=== PATIENT | female | born 1980 | race Caucasian/White ===

== ENCOUNTER 2016-06-11 08:22 | Emergency (ER) | payer OTHER ==
--- NOTE | 2016-06-11 08:59 | UC ---
Lower Extremity/Ankle HPI - HPI Summary HPI Summary: Patient roller her ankle yesterday she was able to "hobble around" when she woke up this morning the ankle was swollen and she cant bear weight without pain. - History of Current Complaint Chief Complaint: UCLowerExtremity Stated Complaint: RIGHT ANKLE INJURY Time Seen by Provider: 06/11/16 08:46 Hx Obtained From: Patient Hx Last Menstrual Period: unknown ?: No Onset/Duration: Sudden Onset, Lasting Hours Severity Initially: Moderate Severity Currently: Severe Aggravating Factor(s): Standing, Ambulation Alleviating Factor(s): Rest Able to Bear Weight: Yes - but painful - Risk Factors Gout Risk Factors: Negative DVT Risk Factors: Negative - Allergies/Home Medications Allergies/Adverse Reactions: Allergies Allergy/AdvReac Type Severity Reaction Status Date / Time Sulfa Drugs Allergy Intermediate Hives Verified 06/11/16 08:35 Bees Allergy Intermediate Hives Uncoded 06/11/16 08:35 PMH/Surg Hx/FS Hx/Imm Hx Previously Healthy: Yes Endocrine History Of: Denies: Diabetes, Thyroid Disease Cardiovascular History Of: Reports: Cardiac Disorders - L ventricular hypertrophy, Hypertension Respiratory History Of: Reports: Asthma - ROUTINE INHALER Denies: COPD GI/ History Of: Reports: Kidney Stones - REMOVED 8 YEARS AGO Denies: Ulcer Psychological History Of: Reports: Anxiety - ON MEDICATION, Depression - ON MEDICATION - Surgical History Surgical History: Yes Surgery Procedure, Year, and Place: C section. TONSILLECTOMY-1985. left carpal tunnel 04/23/2013 - Family History Known Family History: Positive: None, Cardiac Disease - uncle and grandmother - L ventricular hypertrophy, Hypertension, Diabetes - Social History Alcohol Use: None Substance Use Type: None Smoking Status (MU): Heavy Every Day Tobacco Smoker Type: Cigarettes Amount Used/How Often: 1/2 PPD Have You Smoked in the Last Year: Yes - Immunization History Most Recent Influenza Vaccination: not utd Most Recent Tetanus Shot: utd Most Recent Pneumonia Vaccination: none Review of Systems Constitutional: Negative Skin: Negative, Other - multiple scratches on lower extremities, skin is scaly and dry Eyes: Negative ENT: Negative Respiratory: Negative Cardiovascular: Negative Gastrointestinal: Negative Genitourinary: Negative Motor: Negative Neurovascular: Negative Musculoskeletal: Arthralgia, Decreased ROM, Edema Neurological: Negative Psychological: Negative All Other Systems Reviewed And Are Negative: Yes Physical Exam Triage Information Reviewed: Yes Appearance: Ill-Appearing, Pain Distress, Obese Vital Signs: Initial Vital Signs Temp 98.9 F 06/11/16 08:38 Pulse 70 06/11/16 08:38 Resp 20 06/11/16 08:38 BP 131/80 06/11/16 08:38 Pulse Ox 99 06/11/16 08:38 Vital Signs Reviewed: Yes Eye Exam: Normal Eyes: Positive: Conjunctiva Clear ENT Exam: Normal ENT: Positive: Normal ENT inspection, Hearing grossly normal, Pharynx normal, TMs normal Dental Exam: Normal Neck exam: Normal Neck: Positive: Supple, Nontender, No Lymphadenopathy Respiratory Exam: Normal Respiratory: Positive: Chest non-tender, Lungs clear, Normal breath sounds Cardiovascular Exam: Normal Cardiovascular: Positive: RRR, No Murmur, Pulses Normal Abdominal Exam: Normal Abdomen Description: Positive: Nontender, No Organomegaly, Soft Bowel Sounds: Positive: Present Musculoskeletal: Positive: Strength Limited @, ROM Limited @, Edema @ - right lateral ankle, swelling discreet over the anterior talofibular ligament., she is able to move ankle not weight bearing with minimal pain. no radiating pain with compression test of lewer extremity Neurological Exam: Normal Neurological: Positive: Alert, Muscle Tone Normal Psychological Exam: Normal Skin Exam: Normal Lower Extremity Course/Dx - Course Course Of Treatment: hx obtained, exam performed, ROM tested, ronni wrap applied, crutched given. - Differential Dx/Diagnosis Differential Diagnosis/HQI/PQRI: Bursitis, Contusion, Dislocation, Fracture ( Closed), Infection, Sprain, Strain Provider Diagnoses: left lateral ankle sprain. gait instabililty. ankle swelling Discharge - Discharge Plan Condition: Stable Disposition: HOME Patient Education Materials: Ankle Sprain (ED), Ankle Exercises (GEN) Additional Instructions: Rest ice compress and elevated the ankle at rest. Continue with Ibuprofen for pain and fever. use the crutches to aide in returning to full weight bearing. Follow up if you are not seeing continued improvement.
[2016-06-11 09:11] VITALS: BP 131/80
== END 2016-06-11 09:21 | disposition home or self-care (01) ==
LOC: UCCORT 08:22
DX: S93.401A Sprain of unspecified ligament of right ankle, initial encounter (principal); X50.1XXA Overexertion from prolonged static or awkward postures, initial encounter; Y93.9 Activity, unspecified; Y92.9 Unspecified place or not applicable; M25.471 Effusion, right ankle; R26.89 Other abnormalities of gait and mobility; Z88.2 Allergy status to sulfonamides; F17.210 Nicotine dependence, cigarettes, uncomplicated; Z32.02 Encounter for pregnancy test, result negative
CPT/HCPCS: 81025; 99213; G0463

== ENCOUNTER 2017-06-24 19:23 | Emergency (ER) | payer OTHER ==
[2017-06-24 20:29] VITALS: BP 170/112
[2017-06-24] MEDS ORDERED: Fluorescein Sod TOPICAL 0.6* 0.6 MG TEST OPHTHALMIC ONE (20:47)
[2017-06-24] MEDS ORDERED: Tetracaine 0.5% OPTH.SOL 4 ML* 1 DROP BTL RIGHT EYE ONE (20:48)
--- NOTE | 2017-06-24 21:09 | ED ---
Throat Pain/Nasal Congestion - HPI Summary HPI Summary: 36 yr old female with cough and cold symptoms for four days, she has been using her inhalers, and has sinus congestion. she sleeps with her contact lenses in. She was at work today in the [employer], and colleagues noted she had redness to her right eye. She removed the contact lenses. She presents here with eye pain, irritation, and watering, but no discharge or drainage. She has no other complaints. denies blurred vision. - History of Current Complaint Chief Complaint: UCGeneralIllness Time Seen by Provider: 06/24/17 20:41 - Allergies/Home Medications Allergies/Adverse Reactions: Allergies Allergy/AdvReac Type Severity Reaction Status Date / Time Sulfa (Sulfonamide Allergy Intermediate Hives Verified 06/24/17 20:29 Antibiotics) Bees Allergy Intermediate Hives Uncoded 06/24/17 20:29 Home Medications: Home Medications Albuterol 2.5MG/3ML (0.083%)* [Ventolin 2.5 MG/3 ML NEB.LISSET*] 2.5 mg INH Q4H PRN 06/24/17 [History Confirmed 06/24/17] PMH/Surg Hx/FS Hx/Imm Hx Endocrine/Hematology History: Denies: Hx Diabetes, Hx Thyroid Disease Cardiovascular History: Reports: Hx Hypercholesterolemia, Hx Hypertension, Other Cardiovascular Problems/Disorders - LEFT VENTRICULAR HYPERTROPHY- STRESS TEST DONE BY DR. VILLA Respiratory History: Reports: Hx Asthma - ROUTINE INHALER, Hx Sleep Apnea - CPAP user Denies: Hx Chronic Obstructive Pulmonary Disease (COPD) GI History: Denies: Hx Ulcer History: Reports: Hx Kidney Infection, Hx Kidney Stones - REMOVED 8 YEARS AGO Musculoskeletal History: Denies: Hx Scoliosis Sensory History: Reports: Hx Contacts or Glasses - GLASSES Denies: Hx Hearing Aid Opthamlomology History: Reports: Hx Contacts or Glasses - GLASSES Neurological History: Denies: Hx Headaches, Other Neuro Impairments/Disorders Psychiatric History: Reports: Hx Anxiety - ON MEDICATION, Hx Depression - ON MEDICATION - Surgical History Surgery Procedure, Year, and Place: C section. TONSILLECTOMY-1985. left carpal tunnel 04/23/2013 Hx Anesthesia Reactions: No Infectious Disease History: No Infectious Disease History: Denies: Hx Clostridium Difficile, Hx Hepatitis, Hx Human Immunodeficiency Virus (HIV), Hx of Known/Suspected MRSA, Hx Shingles, Hx Tuberculosis, Hx Known/ Suspected VRE, Hx Known/Suspected VRSA, History Other Infectious Disease, Traveled Outside the [place] in Last 30 Days - Family History Known Family History: Positive: None, Cardiac Disease - uncle and grandmother - L ventricular hypertrophy, Hypertension, Diabetes - Social History Occupation: Employed Full-time Alcohol Use: Rare Hx Substance Use: No Substance Use Type: Reports: None Hx Tobacco Use: Yes Smoking Status (MU): Light Every Day Tobacco Smoker Type: Cigarettes Amount Used/How Often: 1/2 ppd Have You Smoked in the Last Year: Yes Review of Systems Constitutional: Negative Positive: Erythema Positive: Nasal Discharge Positive: Cough All Other Systems Reviewed And Are Negative: Yes Physical Exam Triage Information Reviewed: Yes Vital Signs On Initial Exam: Initial Vitals Temp Pulse Resp BP Pulse Ox 98.2 F 83 17 170/112 98 06/24/17 20:22 06/24/17 20:22 06/24/17 20:22 06/24/17 20:22 06/24/17 20:22 Vital Signs Reviewed: Yes Appearance: Positive: Well-Appearing, No Pain Distress Skin: Positive: Warm, Skin Color Reflects Adequate Perfusion Eyes: Positive: EOMI, DONNIE, Conjunctiva Inflammed, Other: - The zheng lamp exam with flouroscein did not show any uptake that I can see with a zheng lamp.. Negative: Discharge Neck: Positive: Nontender Respiratory/Lung Sounds: Positive: Clear to Auscultation, Breath Sounds Present Cardiovascular: Positive: RRR. Negative: Murmur Abdomen Description: Positive: Nontender Neurological: Positive: Sensory/Motor Intact, Alert, Oriented to Person Place, Time, CN Intact II-III, Normal Gait, Speech Normal Psychiatric: Positive: Normal - [place] Coma Scale Best Eye Response: 4 - Spontaneous Best Motor Response: 6 - Obeys Commands Best Verbal Response: 5 - Oriented Coma Scale Total: 15 Diagnostics - Vital Signs Vital Signs Temp Pulse Resp BP Pulse Ox 06/24/17 20:22 98.2 F 83 17 170/112 98 - Laboratory Lab Statement: Any lab studies that have been ordered have been reviewed, and results considered in the medical decision making process. EENT Course/Dx - Course Course Of Treatment: 36 yr old with right eye pain, redness. She does not want an ambulance to the ER and does not want to go to [facility] tonight. She wants to drive to [facility] for further evaluation of her right eye redness and pain. Her visual acuity is as documented and reviewed in nursing record with wearing her glasses. She knows she is at risk for corneal ulcer and not to delay going to the ER this evening to have a more high powered exam under slit lamp. - Diagnoses Provider Diagnoses: URI (upper respiratory infection), Pain, eye, right, Hypertension Discharge - Discharge Plan Condition: Good Disposition: HOME Patient Education Materials: Eye Pain (ED), Hypertension (ED) Referrals: Patricia Davis NP [Primary Care Provider] - Additional Instructions: You need to go to the ER where they can evaluate your eye further with a slit lamp exam. Do not delay as you are at risk for corneal ulcer given the fact you wear contact lenses and have eye pain and redness.
== END 2017-06-24 21:09 | disposition home or self-care (01) ==
LOC: UCCORT 19:23
DX: J06.9 Acute upper respiratory infection, unspecified (principal); H57.11 Ocular pain, right eye; I10 Essential (primary) hypertension; E11.9 Type 2 diabetes mellitus without complications; J45.909 Unspecified asthma, uncomplicated; Z91.030 Bee allergy status; Z88.2 Allergy status to sulfonamides
CPT/HCPCS: 99212; A9270-GY; G0463

== ENCOUNTER 2018-06-20 12:53 | Emergency (ER) | payer OTHER ==
[2018-06-20 13:19] VITALS: BP 135/91
--- NOTE | 2018-06-20 13:27 | UC ---
General HPI - HPI Summary HPI Summary: PT WAS LIFTING A FULL 2 GALLON BOWL OF FOOD WHILE AT WORK YESTERDAY WHEN SHE HEARD A "POP" AND GOT A SUDDEN PAIN IN THE OUTSIDE OF HER L ELBOW. SHE FELT LIKE THE ELBOW GAVE OUT. ELBOW FEELS SWOLLEN. - History of Current Complaint Chief Complaint: UCUpperExtremity Stated Complaint: LEFT ELBOW INJURY - W/C Time Seen by Provider: 06/20/18 13:19 Hx Obtained From: Patient Hx Last Menstrual Period: 2 months Onset/Duration: Sudden Onset Pain Intensity: 0 Aggravating: LIFTING Alleviating: REST Associated Signs & Symptoms: Negative: Fever, Weakness - Allergy/Home Medications Allergies/Adverse Reactions: Allergies Allergy/AdvReac Type Severity Reaction Status Date / Time Sulfa (Sulfonamide Allergy Intermediate Hives Verified 06/20/18 13:10 Antibiotics) Bees Allergy Intermediate Hives Uncoded 06/20/18 13:10 Home Medications: Home Medications Amoxicillin PO (*) [Amoxicillin 875 MG (*)] 875 mg PO TID 06/20/18 [History Confirmed 06/20/18] Hydrocodone/Acetaminophen [Vicodin 5-300 mg] 1 tab PO Q6H PRN 06/20/18 [History Confirmed 06/20/18] Ibuprofen TAB* [Motrin TAB* 600 MG] 600 mg PO Q6H PRN 06/20/18 [History Confirmed 06/20/18] Lisinopril TAB* [Prinivil TAB*] 5 mg PO DAILY 06/20/18 [History Confirmed ] PMH/Surg Hx/FS Hx/Imm Hx Cardiovascular History: Hypertension Respiratory History: Asthma Psychological History: Anxiety, Depression - Surgical History Surgical History: Yes Surgery Procedure, Year, and Place: C section. TONSILLECTOMY-1985. left carpal tunnel 04/23/2013 - Family History Known Family History: Positive: None, Cardiac Disease - uncle and grandmother - L ventricular hypertrophy, Hypertension, Diabetes - Social History Occupation: Employed Full-time Alcohol Use: Rare Substance Use Type: None Smoking Status (MU): Light Every Day Tobacco Smoker Type: Cigarettes Amount Used/How Often: 1/2 ppd Have You Smoked in the Last Year: Yes Household Exposure Type: Cigarettes - Immunization History Most Recent Influenza Vaccination: not utd Most Recent Tetanus Shot: utd Most Recent Pneumonia Vaccination: none Review of Systems All Other Systems Reviewed And Are Negative: Yes Musculoskeletal: Negative: Decreased ROM - L ELBOW Neurological: Negative: Paresthesia, Numbness Physical Exam Triage Information Reviewed: Yes Appearance: Well-Appearing Vital Signs: Initial Vital Signs Temp 98 F 06/20/18 13:09 Pulse 84 06/20/18 13:09 Resp 16 06/20/18 13:09 BP 135/91 06/20/18 13:09 Pulse Ox 88 06/20/18 13:09 Vital Signs Reviewed: Yes Eyes: Positive: Conjunctiva Clear ENT: Positive: Normal ENT inspection Respiratory: Positive: Lungs clear Cardiovascular: Positive: RRR Abdomen Description: Positive: Nontender Musculoskeletal: Positive: Other: - LUE: COMPARED TO R HAS ? SLIGHT SWELLING LATERAL ELBOW. THE LATERAL EPICONDYL AND ADJACENT MM IS TENDER. PT HAS FOCAL PAIN TO SAME AREA AGAINST FORCED EXTENSION BUT NO PAIN WITH FORCED FLEXION. ELBOW HAS FULL ROM. REST OF ARM IS UNREMARKABLE. HADND HAS FULL S/V/M FUNCTION. Neurological: Positive: Alert Psychological: Positive: Age Appropriate Behavior Skin Exam: Normal Diagnostics - Radiology No standard instances Radiology Interpretation Completed By: Radiologist - L ELBOW=IMPRESSION: NO ACUTE OSSEOUS INJURY. IF SYMPTOMS PERSIST, RECOMMEND REPEAT IMAGING. Course/Dx - Differential Dx - Multi-Symptom Differential Diagnoses: Other - HX AND EXAM C/W A LATERAL TENDINOPATHY L ELBOW AND CORRESPONDING PROXIMAL EXTENSOR FOREARM STRAIN. WILL LIMIT LIFTING AND HAVE PT WEAR A FOREARM STRAP. - Diagnoses Provider Diagnosis: Lateral epicondylitis, left elbow, Strain of forearm, left Discharge - Sign-Out/Discharge Documenting (check all that apply): Patient Departure All imaging exams completed and their final reports reviewed: Yes - Discharge Plan Condition: Stable Disposition: HOME Patient Education Materials: Tennis Elbow (ED), Muscle Strain (ED) Forms: *Work Release Referrals: Jonh Becerra MD [Medical Doctor] - 5 Days Additional Instructions: WEAR FOREARM STRAP WITH ACTIVITY/USE, REMOVE FOR BEDTIME. - Billing Disposition and Condition Condition: STABLE Disposition: Home
== END 2018-06-20 14:05 | disposition home or self-care (01) ==
LOC: UCCORT 12:53
DX: S56.912A Strain of unspecified muscles, fascia and tendons at forearm level, left arm, initial encounter (principal); M77.12 Lateral epicondylitis, left elbow; I10 Essential (primary) hypertension; J45.909 Unspecified asthma, uncomplicated; F17.210 Nicotine dependence, cigarettes, uncomplicated; Z88.2 Allergy status to sulfonamides; Z91.030 Bee allergy status; Z79.899 Other long term (current) drug therapy; X58.XXXA Exposure to other specified factors, initial encounter; Y92.9 Unspecified place or not applicable
CPT/HCPCS: 99211; G0463

== ENCOUNTER 2019-03-28 11:23 | Emergency (ER) | payer OTHER ==
--- OUTSIDE RECORDS SUMMARY | 2019-03-28 12:31 | XMS REPORT | Continuity of Care Document ---
:1980 External Reference #:[id number] Author Name Valeria Fallon FNP (transmitted by agent of provider Marilee Cobian) Address [address] [place] [id number] Care Team Providers Name Role Phone Patricia Davis NP Care Team Information Blood Bank Technologist [phone] Problems Active Problems Provider Date Sprain of elbow and forearm Kaylene Henson PA Onset: 07/08/2018 Lateral epicondylitis Kaylene Henson PA Onset: 07/08/2018 Viral conjunctivitis Reggie Hernandez MD Onset: 06/25/2017 Social History Type Date Description Comments Sex Unknown ETOH Use Rarely consumes alcohol Recreational Drug Use Never Used Drugs Tobacco Use Start: Unknown Patient is a current smoker, 5-6 cigs daily smokes every day Smoking Status Reviewed: 07/23/18 Patient is a current smoker, 5-6 cigs daily smokes every day Allergies, Adverse Reactions, Alerts Active Allergies Reaction Severity Comments Date Sulfa Drugs 06/27/2017 Medications Active Medications SIG Qnty Indications Ordering Date Provider Ashlynzal Allergy 24HR 1 tab by mouth Unknown 5mg Tablets every day for nasal congestion Symbicort 2 puffs twice a Unknown 160-4.5mcg/Act Aerosol day Ventolin HFA take 1 to 2 puffs Unknown 108(90Base) mcg/Act bid Aerosol Hydrochlorothiazide 1 by mouth every Unknown Tablets day Ibuprofen prn Unknown 200mg Tablets Lisinopril 1 daily Unknown 20mg Tablets Immunizations Description No Information Available Vital Signs Date Vital Result Comment 01/21/2019 5:21pm BP Systolic 134 mmHg BP Diastolic 88 mmHg Body Temperature 98.4 F Heart Rate 84 /min O2 % BldC Oximetry 98 % 08/05/2018 1:50pm BP Systolic Sitting Left Arm 122 mmHg BP Diastolic Sitting Left Arm 75 mmHg Body Temperature 98.5 F Heart Rate 86 /min Height 63 inches 5'3" Weight 215.00 lb BMI (Body Mass Index) 38.1 kg/m2 BSA (Body Surface Area) 1.99 m2 [place] body weight in kilograms 52 kg O2 % BldC Oximetry 98 % Results Description No Information Available Procedures Description No Information Available Medical Devices Description No Information Available Encounters Type Date Location Provider Dx Diagnosis Office Visit 01/21/2019 Walk In Clinic Leeanne, R55 Syncope and 5:00p Valeria Fields, GERMAN collapse R32 Unspecified urinary incontinence Office Visit 08/05/2018 Orthopaedic Perla Henson.12 Lateral 2:00p Office KARISSA Maurice epicondylitis, left elbow Assessments Date Code Description Provider 01/21/2019 R55 Syncope and collapse Valeria Fallon FNP 01/21/2019 R32 Unspecified urinary incontinence Valeria Fallon, PICKLER HELPER 08/05/2018 M77.12 Lateral epicondylitis, left elbow Kaylene Henson PA Plan of Treatment 01/21/2019 - Valeria Fallon, [id number] Syncope and collapseComments:911 contacted and [facility] [place] [facility] [place] [id number] Unspecified urinary incontinence Functional Status Description No Information Available Mental Status Description No Information Available Referrals Description No Information Available
[2019-03-28 12:37] VITALS: BP 151/111
--- NOTE | 2019-03-28 12:50 | UC ---
Complaint Female HPI - HPI Summary HPI Summary: Burning on urination and frequency for the past 3 days and some back pain over kidney area today. - History Of Current Complaint Chief Complaint: UCGU Stated Complaint: BACK PAIN TO FRONT(POSSIBLE BLADDER INFECTION) Time Seen by Provider: 03/28/19 12:34 Hx Obtained From: Patient Hx Last Menstrual Period: irregular menses; "it's been months" since last menses ?: No Onset/Duration: Gradual Onset Timing: Intermittent Severity Initially: Mild Severity Currently: Moderate Pain Intensity: 7 Character: Burning Aggravating Factor(s): Urination Alleviating Factor(s): Nothing Associated Signs And Symptoms: Positive: Back Pain - Allergies/Home Medications Allergies/Adverse Reactions: Allergies Allergy/AdvReac Type Severity Reaction Status Date / Time Sulfa (Sulfonamide Allergy Intermediate Hives Verified 03/28/19 12:30 Antibiotics) Bees Allergy Intermediate Hives Uncoded 03/28/19 12:30 PMH/Surg Hx/FS Hx/Imm Hx Previously Healthy: Yes Cardiovascular History: Hypertension Respiratory History: Asthma - Surgical History Surgical History: Yes Surgery Procedure, Year, and Place: C section. TONSILLECTOMY-1985. left carpal tunnel 04/23/2013. kidney stones - Family History Known Family History: Positive: None, Cardiac Disease - uncle and grandmother - L ventricular hypertrophy, Hypertension, Diabetes - Social History Lives: With Family Alcohol Use: Rare Substance Use Type: None Smoking Status (MU): Light Every Day Tobacco Smoker Type: Cigarettes Amount Used/How Often: 1/2 ppd Have You Smoked in the Last Year: Yes Household Exposure Type: Cigarettes - Immunization History Most Recent Influenza Vaccination: not utd Most Recent Tetanus Shot: utd Most Recent Pneumonia Vaccination: none Review of Systems All Other Systems Reviewed And Are Negative: Yes Genitourinary: Positive: Dysuria, Frequency, Urgency Musculoskeletal: Positive: Other: - Mild back pain over left kidney area...mostly soreness, no recent injury Physical Exam Triage Information Reviewed: Yes Appearance: Well-Appearing, No Pain Distress, Well-Nourished Vital Signs: Initial Vital Signs Temp 97.8 F 03/28/19 12:32 Pulse 80 03/28/19 12:32 Resp 14 03/28/19 12:32 BP 151/111 03/28/19 12:32 Pulse Ox 99 03/28/19 12:32 Vital Signs Reviewed: Yes Eyes: Positive: Conjunctiva Clear Respiratory: Positive: Lungs clear, Normal breath sounds, No respiratory distress, No accessory muscle use Cardiovascular: Positive: RRR, No Murmur, Pulses Normal, Brisk Capillary Refill Abdomen Description: Positive: Nontender, No Organomegaly, Soft. Negative: CVA Tenderness (R), CVA Tenderness (L), Hepatomegaly, Splenomegaly Bowel Sounds: Positive: Present Musculoskeletal Exam: Normal Neurological Exam: Normal Psychological Exam: Normal Skin Exam: Normal Complaint Female Dx - Course Course Of Treatment: Urine HCG: Negative Urinalysis: Positive leuks Will treat for a UTI, pt comfortable here. - Differential Dx/Diagnosis Provider Diagnosis: UTI (urinary tract infection) Discharge ED - Sign-Out/Discharge Documenting (check all that apply): Patient Departure All imaging exams completed and their final reports reviewed: No Studies - Discharge Plan Condition: Fair Disposition: HOME Prescriptions: Cephalexin CAP* [Keflex 500 CAP*] 500 mg PO TID 10 Days #30 cap Phenazopyridine TAB* [Pyridium 100 mg TAB*] 100 mg PO TID PRN #10 tab PRN Reason: Spasms Patient Education Materials: Urinary Tract Infection in Women (ED) Referrals: [facility] [Outside] No Primary Care Phys,NOPCP [Primary Care Provider] - Additional Instructions: Increase fluids, go to the ER if you develop fever, chills, vomiting and unable to keep the medicine down. - Billing Disposition and Condition Condition: FAIR Disposition: Home
--- NOTE | 2019-04-01 08:00 | UC ---
- Progress Note Progress Note: Urine culture and sensitivity comes back with Escherichia coli greater than 10, 000 from March 28, 2019. It shows that resistances indeterminant to cefazolin which the patient was prescribed. Nursing to call patient and find out how they're doing. If there symptoms are worsening and need further medication today she should come here to clinic and we can start him on nitrofurantoin. If the patient's symptoms are improving then the symptoms all and maybe be able to treat the infection successfully however given the indeterminate sensitivity I would recommend switching over to nitrofurantoin. Course/Dx - Diagnoses Provider Diagnoses: UTI (urinary tract infection) Discharge ED - Sign-Out/Discharge Documenting (check all that apply): Patient Departure All imaging exams completed and their final reports reviewed: No Studies - Discharge Plan Condition: Fair Disposition: HOME Prescriptions: Cephalexin CAP* [Keflex 500 CAP*] 500 mg PO TID 10 Days #30 cap Phenazopyridine TAB* [Pyridium 100 mg TAB*] 100 mg PO TID PRN #10 tab PRN Reason: Spasms Patient Education Materials: Urinary Tract Infection in Women (ED) Referrals: [facility] [Outside] No Primary Care Phys,NOPCP [Primary Care Provider] - Additional Instructions: Increase fluids, go to the ER if you develop fever, chills, vomiting and unable to keep the medicine down. - Billing Disposition and Condition Condition: FAIR Disposition: Home
== END 2019-03-28 12:58 | disposition home or self-care (01) ==
LOC: UCCORT 11:23
DX: N39.0 Urinary tract infection, site not specified (principal); I10 Essential (primary) hypertension; J45.909 Unspecified asthma, uncomplicated; M54.9 Dorsalgia, unspecified; F17.210 Nicotine dependence, cigarettes, uncomplicated; Z88.2 Allergy status to sulfonamides; Z91.030 Bee allergy status
CPT/HCPCS: 81003; 84702; 87077; 87086; 87186; 99212; G0463